=== PATIENT | female | born 1985 | race Caucasian/White ===

== ENCOUNTER 2019-07-14 14:25 | Inpatient (IN) | payer MEDICARE, MEDICAID ==
[~2019-07-14] VITALS: Ht 149.9 cm; Wt 69.9 kg
[2019-07-14] MEDS ORDERED: ZOLPIDEM TARTRATE 10 MG TABLET PO PRN (19:45)
[2019-07-14] MEDS ORDERED: QUET200T PO (19:57)
[2019-07-14 21:04] LABS: GLUCOMETER DEV NAME(LOC) BV2X.; GLUCOSE,POINT OF CARE 149 MG/DL (70-110)
[2019-07-14] MEDS: QUEtiapine FUMARATE 100 MG TABLET PO PRN (21:10)
[2019-07-14] MEDS ORDERED: PNEUMOCOCCAL VACCINE POLYVALENT 0.5 ML VIAL [PPSV23] IM ONE (21:30)
[2019-07-14] MEDS ORDERED: INFLUENZA VIRUS VACCINE QVS 2019-20 (3YR+)/PF 60 MCG/0.5 ML SYRINGE IM ONE (21:30)
[2019-07-14 21:38] VITALS: BP 135/88
[2019-07-14] MEDS ORDERED: GLUCAGON,HUMAN RECOMBINANT 1 MG VIAL IM PRN (23:00)
[2019-07-14] MEDS ORDERED: MAGNESIUM HYDROXIDE SUSPENSION 30 ML UDCUP PO PRN (23:45)
[2019-07-14] MEDS ORDERED: ACETAMINOPHEN 325 MG TABLET PO PRN (23:45)
[2019-07-14] MEDS ORDERED: GuaiFENesin/D-METHORPHAN [SUGAR-FREE] 200-20MG/10 ML SYRUP UDCUP PO PRN (23:45)
[2019-07-14] MEDS ORDERED: PETROLATUM,WHITE 28 GM JELLY TP PRN (23:45)
[2019-07-14] MEDS ORDERED: IBUPROFEN 400 MG TABLET PO PRN (23:45)
[2019-07-14] MEDS ORDERED: NICOTINE 14 MG/24 HOUR PATCH TD PRN (23:45)
[2019-07-14] MEDS ORDERED: ONDANSETRON HCL 4 MG TABLET PO PRN (23:45)
[2019-07-14] MEDS ORDERED: DOCUSATE SODIUM 100 MG CAPSULE PO PRN (23:45)
[2019-07-14] MEDS ORDERED: LOPERAMIDE HCL 2 MG CAPSULE PO PRN (23:45)
[2019-07-14] MEDS ORDERED: ALBUTEROL SULFATE HFA 90 MCG/PUFF 8 GM INHALER IH PRN (23:45)
[2019-07-14] MEDS ORDERED: MAG HYDROX/AL HYDROX/SIMETH ES 30 ML SUSPENSION UDCUP PO PRN (23:45)
[2019-07-14] MEDS ORDERED: CloNIDine HCL 0.1 MG TABLET PO PRN (23:45)
[2019-07-14] MEDS: LORazepam 2 MG TABLET PO PRN (23:57)
[2019-07-15 00:37] VITALS: BP 115/66
[2019-07-15 06:30] LABS: GLUCOMETER DEV NAME(LOC) BV2X.; GLUCOSE,POINT OF CARE 268 MG/DL (70-110)
[2019-07-15] MEDS: INSULIN LISPRO 100 UNITS/ML SQ PRN ×3 (06:59→22:23)
[2019-07-15 16:11] VITALS: BP 136/88
[2019-07-15 18:28] LABS: GLUCOMETER DEV NAME(LOC) BV2X.; GLUCOSE,POINT OF CARE 194 MG/DL (70-110)
[2019-07-15 20:35] LABS: GLUCOMETER DEV NAME(LOC) BV2X.; GLUCOSE,POINT OF CARE 163 MG/DL (70-110)
[2019-07-15] MEDS: QUEtiapine FUMARATE 200 MG TABLET PO SCH (21:26)
[2019-07-16] MEDS: QUEtiapine FUMARATE 100 MG TABLET PO PRN ×2 (00:03→15:46)
[2019-07-16 04:46] VITALS: BP 138/90
[2019-07-16] MEDS: LORazepam 2 MG TABLET PO PRN ×2 (10:10→15:46)
[2019-07-16 12:01] LABS: GLUCOMETER DEV NAME(LOC) BV2X.; GLUCOSE,POINT OF CARE 222 MG/DL (70-110)
[2019-07-16] MEDS: INSULIN LISPRO 100 UNITS/ML SQ PRN (12:06)
[2019-07-16 16:10] VITALS: BP 140/69
[2019-07-16 16:21] LABS: GLUCOMETER DEV NAME(LOC) BV2X.; GLUCOSE,POINT OF CARE 115 MG/DL (70-110)
[2019-07-16] MEDS: LITHIUM CARBONATE 300 MG CAPSULE PO SCH (17:00)
[2019-07-16] MEDS: QUEtiapine FUMARATE 200 MG TABLET PO SCH (21:26)
[2019-07-16 21:32] LABS: GLUCOMETER DEV NAME(LOC) BV2X.; GLUCOSE,POINT OF CARE 142 MG/DL (70-110)
[2019-07-17 01:32] VITALS: BP 126/81
[2019-07-17 05:52] LABS: GLUCOMETER DEV NAME(LOC) BV2X.; GLUCOSE,POINT OF CARE 183 MG/DL (70-110)
[2019-07-17] MEDS: INSULIN LISPRO 100 UNITS/ML SQ PRN ×3 (06:41→16:50)
[2019-07-17 08:53] VITALS: BP 138/90
[2019-07-17] MEDS: LITHIUM CARBONATE 300 MG CAPSULE PO SCH ×2 (09:00→17:00)
[2019-07-17] MEDS ORDERED: LORazepam 2 MG/ML VIAL ONE (09:26)
[2019-07-17] MEDS ORDERED: DiphenhydrAMINE HCL 50 MG/ML VIAL ONE (09:27)
[2019-07-17] MEDS ORDERED: DiphenhydrAMINE HCL 50 MG/ML VIAL IM ONE (09:30)
[2019-07-17] MEDS ORDERED: LORazepam 2 MG/ML VIAL IM ONE (09:30)
[2019-07-17 16:44] LABS: GLUCOMETER DEV NAME(LOC) BV2X.; GLUCOSE,POINT OF CARE 157 MG/DL (70-110)
[2019-07-17] MEDS: QUEtiapine FUMARATE 200 MG TABLET PO SCH (20:32)
[2019-07-18 03:47] VITALS: BP 132/86
[2019-07-18 08:26] VITALS: BP 132/82
[2019-07-18] MEDS: LITHIUM CARBONATE 300 MG CAPSULE PO SCH (09:00)
[2019-07-18] MEDS ORDERED: LITH300CRT PO (09:49)
[2019-07-18] MEDS ORDERED: QUET200T PO (09:50)
== END 2019-07-18 15:53 | disposition home or self-care (01) | DRG 885 ==
LOC: B2X 20:21
PROVIDERS: ADMIT Psychiatry & Neurology Psychiatry; ATTEND Psychiatry & Neurology Psychiatry
DX: F25.0 Schizoaffective disorder, bipolar type (principal); R45.851 Suicidal ideations; F10.10 Alcohol abuse, uncomplicated; F41.9 Anxiety disorder, unspecified; R73.03 Prediabetes
CPT/HCPCS: 87081; J1200; J2060; J3230

== ENCOUNTER 2022-01-25 00:39 | Emergency (ER) | payer MEDICARE, MEDICAID ==
[~2022-01-25] VITALS: Ht 152.4 cm; Wt 63.6 kg
[~2022-01-25 00:39] MED LIST: LITH300CRT PO; QUET200T PO
[2022-01-25 00:57] VITALS: BP 148/82
== END 2022-01-25 01:40 | disposition left against medical advice (07) ==
LOC: EMS 00:43
DX: Z53.21 Procedure and treatment not carried out due to patient leaving prior to being seen by health care provider (principal)